=== PATIENT | male | born 1955 | race African-American/Black ===

== ENCOUNTER 2020-07-31 16:18 | Emergency (ER) | payer MEDICAID ==
[~2020-07-31] VITALS: Ht 177.8 cm; Wt 78.0 kg
[2020-07-31] MEDS ORDERED: CLONIDINE 0.2MG TABLET PO ONE (18:00)
[2020-07-31 19:17] LABS: BASOPHILS % 1.2 % (0.0-2.0); EOSINOPHILS % 6.8 % (0.0-5.0); HEMATOCRIT. 38.9 % (42.0-52.0); HEMOGLOBIN. 13.3 g/dL (14.0-18.0); LYMPHOCYTES % 26.2 % (20.0-50.0); MEAN CORPUSCULAR HEMOGLOBIN 27.5 pg (28.0-32.0); MEAN CORPUSCULAR VOLUME 80.6 fL (80.0-94.0); MEAN PLATELET VOLUME 10.1 fl (7.4-10.4); NEUTROPHILS % 57.8 % (40.0-76.0); PLATELET 270 x1000/uL (130-400); RED BLOOD CELL COUNT 4.83 mill/uL (4.7-6.1); RED CELL DISTRIBUTION WIDTH 13.7 % (11.6-14.6)
[2020-07-31 19:19] LABS: CHLORIDE 105 mEq/L (98-107)
[2020-07-31 20:03] LABS: CLARITY URINE CLEAR (CLEAR); COLOR URINE YELLOW (YELLOW); KETONES URINE NEGATIVE (NEGATIVE); LEUKOCYTE ESTERASE URINE 2+ (NEGATIVE); NITRITE URINE NEGATIVE (NEGATIVE); OCCULT BLOOD URINE 1+ (NEGATIVE); PROTEIN URINE TRACE (NEGATIVE); SPECIFIC GRAVITY URINE 1.009 (1.005-1.030); UROBILINOGEN URINE 0.2 E.U./dL (0.2-1.0)
[2020-07-31] MEDS ORDERED: CEFTRIAXONE 1 G PREMIX 50 ML IV ONE (20:45)
[2020-07-31] MEDS ORDERED: CIPR-263 MT (20:50)
[2020-07-31 21:38] VITALS: BP 118/70
== END 2020-07-31 21:49 | disposition home or self-care (01) ==
LOC: ER 16:18
DX: R60.0 Localized edema (principal); Z43.6 Encounter for attention to other artificial openings of urinary tract; N40.1 Benign prostatic hyperplasia with lower urinary tract symptoms; N39.0 Urinary tract infection, site not specified
CPT/HCPCS: 36415; 71045; 80053; 81003; 85025; 87077; 87086; 87186; 93005; 93970; 96365; 99285; J0696

== ENCOUNTER 2020-08-03 18:40 | Emergency (ER) | payer MEDICAID ==
[~2020-08-03] VITALS: Ht 177.8 cm; Wt 78.0 kg
[~2020-08-03 18:40] MED LIST: CIPR-263 MT
[2020-08-03 19:48] LABS: CLARITY URINE CLEAR (CLEAR); COLOR URINE YELLOW (YELLOW); KETONES URINE NEGATIVE (NEGATIVE); LEUKOCYTE ESTERASE URINE 1+ (NEGATIVE); NITRITE URINE NEGATIVE (NEGATIVE); OCCULT BLOOD URINE 2+ (NEGATIVE); PH URINE 6.5 (4.5-8.0); PROTEIN URINE 1+ (NEGATIVE); SPECIFIC GRAVITY URINE 1.018 (1.005-1.030)
[2020-08-03] MEDS ORDERED: TAMS-11 MT (20:47)
[2020-08-03 20:55] VITALS: BP 140/71
== END 2020-08-03 20:55 | disposition home or self-care (01) ==
LOC: ER 18:40
DX: N40.1 Benign prostatic hyperplasia with lower urinary tract symptoms (principal); R33.8 Other retention of urine
CPT/HCPCS: 81003; 99283; A4315

== ENCOUNTER 2020-10-11 04:34 | Emergency (ER) | payer MEDICAID, OTHER ==
[~2020-10-11] VITALS: Ht 177.8 cm; Wt 78.0 kg
[~2020-10-11 04:34] MED LIST changes: +TAMS-11 MT
[2020-10-11] MEDS ORDERED: ACETAMINOPHEN WITH CODEINE 300/30MG TABLET PO ONE (05:30)
[2020-10-11 06:07] LABS: CLARITY URINE TURBID (CLEAR); COLOR URINE RED (YELLOW); KETONES URINE NEGATIVE (NEGATIVE); LEUKOCYTE ESTERASE URINE 3+ (NEGATIVE); NITRITE URINE POSITIVE (NEGATIVE); OCCULT BLOOD URINE 2+ (NEGATIVE); PH URINE 5.5 (4.5-8.0); PROTEIN URINE 2+ (NEGATIVE); SPECIFIC GRAVITY URINE 1.019 (1.005-1.030)
[2020-10-11] MEDS ORDERED: LEVO750T46 PO (06:52)
[2020-10-11 07:08] VITALS: BP 158/89
== END 2020-10-11 07:13 | disposition home or self-care (01) ==
LOC: ER 04:34
DX: R33.9 Retention of urine, unspecified (principal); N39.0 Urinary tract infection, site not specified; E11.9 Type 2 diabetes mellitus without complications; Z79.899 Other long term (current) drug therapy
CPT/HCPCS: 51702; 81003; 87077; 87186; 99284; A4315

== ENCOUNTER 2020-11-24 20:57 | Emergency (ER) | payer OTHER ==
[~2020-11-24] VITALS: Ht 177.8 cm; Wt 78.0 kg
[~2020-11-24 20:57] MED LIST changes: +LEVO750T46 PO
[2020-11-25 00:01] LABS: CLARITY URINE CLEAR (CLEAR); COLOR URINE YELLOW (YELLOW); KETONES URINE NEGATIVE (NEGATIVE); LEUKOCYTE ESTERASE URINE TRACE (NEGATIVE); NITRITE URINE POSITIVE (NEGATIVE); OCCULT BLOOD URINE 1+ (NEGATIVE); PROTEIN URINE NEGATIVE (NEGATIVE); SPECIFIC GRAVITY URINE 1.011 (1.005-1.030); UROBILINOGEN URINE 0.2 E.U./dL (0.2-1.0)
[2020-11-25] MEDS ORDERED: CEPH500C2 MT (00:01)
[2020-11-25 00:38] VITALS: BP 127/84
== END 2020-11-25 00:42 | disposition home or self-care (01) ==
LOC: ER 20:57
DX: T83.038A Leakage of other urinary catheter, initial encounter (principal); N39.0 Urinary tract infection, site not specified; N40.0 Benign prostatic hyperplasia without lower urinary tract symptoms; E11.9 Type 2 diabetes mellitus without complications; Y84.6 Urinary catheterization as the cause of abnormal reaction of the patient, or of later complication, without mention of misadventure at the time of the procedure; Y92.018 Other place in single-family (private) house as the place of occurrence of the external cause
CPT/HCPCS: 81003; 99283

== ENCOUNTER 2020-12-15 08:07 | Emergency (ER) | payer OTHER ==
[~2020-12-15] VITALS: Ht 177.8 cm; Wt 78.0 kg
[~2020-12-15 08:07] MED LIST changes: +CEPH500C2 MT
[2020-12-15 08:19] VITALS: BP 189/92
[2020-12-15 10:03] LABS: BASOPHILS % 0.7 % (0.0-2.0); EOSINOPHILS % 0.7 % (0.0-5.0); HEMATOCRIT. 37.8 % (42.0-52.0); HEMOGLOBIN. 12.8 g/dL (14.0-18.0); LYMPHOCYTES % 8.5 % (20.0-50.0); MEAN CORPUSCULAR HEMOGLOBIN 27.6 pg (28.0-32.0); MEAN CORPUSCULAR VOLUME 81.3 fL (80.0-94.0); MEAN PLATELET VOLUME 9.5 fl (7.4-10.4); MONOCYTES % 5.2 % (2.0-8.0); NEUTROPHILS % 84.9 % (40.0-76.0); PLATELET 222 x1000/uL (130-400); RED BLOOD CELL COUNT 4.65 mill/uL (4.7-6.1); RED CELL DISTRIBUTION WIDTH 14.1 % (11.6-14.6)
[2020-12-15 10:13] LABS: CHLORIDE 107 mEq/L (98-107)
== END 2020-12-15 09:28 | disposition home or self-care (01) ==
LOC: ER 08:17
DX: R33.9 Retention of urine, unspecified (principal); I10 Essential (primary) hypertension; E11.9 Type 2 diabetes mellitus without complications; Z79.899 Other long term (current) drug therapy; N40.0 Benign prostatic hyperplasia without lower urinary tract symptoms
CPT/HCPCS: 36415; 51702; 80048; 85025; 99284; A4315

== ENCOUNTER 2020-12-31 20:33 | Emergency (ER) | payer OTHER ==
[~2020-12-31] VITALS: Ht 180.3 cm; Wt 77.0 kg
[2020-12-31 21:50] LABS: CHLORIDE 106 mEq/L (98-107)
[2020-12-31 23:50] VITALS: BP 144/72
== END 2020-12-31 23:52 | disposition home or self-care (01) ==
LOC: ER 20:33
DX: R33.9 Retention of urine, unspecified (principal); E11.9 Type 2 diabetes mellitus without complications
CPT/HCPCS: 36415; 51702; 80048; 99283; 99284; A4315

== ENCOUNTER 2021-04-06 19:48 | Emergency (ER) | payer OTHER ==
[~2021-04-06] VITALS: Ht 177.8 cm; Wt 79.0 kg
[2021-04-06 20:23] VITALS: BP 190/107
[2021-04-06] MEDS ORDERED: CIPR250T4 MT (21:34)
== END 2021-04-06 22:00 | disposition home or self-care (01) ==
LOC: ER 19:48
DX: T83.028A Displacement of other urinary catheter, initial encounter (principal); X58.XXXA Exposure to other specified factors, initial encounter; E11.9 Type 2 diabetes mellitus without complications
CPT/HCPCS: 99283; Z7610

== ENCOUNTER 2021-06-05 01:11 | Emergency (ER) | payer OTHER ==
[~2021-06-05] VITALS: Ht 177.8 cm; Wt 76.7 kg
[~2021-06-05 01:11] MED LIST changes: +CIPR250T4 MT
[2021-06-05 02:22] VITALS: BP 168/96
== END 2021-06-05 03:30 | disposition home or self-care (01) ==
LOC: ER 01:11
DX: N40.1 Benign prostatic hyperplasia with lower urinary tract symptoms (principal); R33.8 Other retention of urine; R03.0 Elevated blood-pressure reading, without diagnosis of hypertension; E11.9 Type 2 diabetes mellitus without complications
CPT/HCPCS: 51702; 99284; A4315

== ENCOUNTER 2021-09-11 06:48 | Emergency (ER) | payer OTHER ==
[~2021-09-11] VITALS: Ht 177.8 cm; Wt 73.0 kg
[2021-09-11 08:08] VITALS: BP 170/104
[2021-09-11 08:45] LABS: CLARITY URINE CLEAR (CLEAR); COLOR URINE YELLOW (YELLOW); KETONES URINE NEGATIVE (NEGATIVE); LEUKOCYTE ESTERASE URINE 2+ (NEGATIVE); NITRITE URINE NEGATIVE (NEGATIVE); OCCULT BLOOD URINE 2+ (NEGATIVE); PH URINE 6.5 (4.5-8.0); PROTEIN URINE NEGATIVE (NEGATIVE); UROBILINOGEN URINE 0.2 E.U./dL (0.2-1.0)
[2021-09-11] MEDS ORDERED: LEVO750T46 MT (08:51)
== END 2021-09-11 09:43 | disposition home or self-care (01) ==
LOC: ER 06:48
DX: N40.1 Benign prostatic hyperplasia with lower urinary tract symptoms (principal); R33.8 Other retention of urine; N39.0 Urinary tract infection, site not specified
CPT/HCPCS: 51702; 81003; 99284; A4315

== ENCOUNTER 2021-10-22 22:03 | Emergency (ER) | payer OTHER ==
[~2021-10-22] VITALS: Ht 177.8 cm; Wt 72.8 kg
[~2021-10-22 22:03] MED LIST changes: +LEVO750T46 MT
[2021-10-22 22:17] VITALS: BP 207/119
== END 2021-10-23 00:50 | disposition home or self-care (01) ==
LOC: ER 22:03
DX: R33.9 Retention of urine, unspecified (principal); E11.9 Type 2 diabetes mellitus without complications
CPT/HCPCS: 51702; 99284

== ENCOUNTER 2021-11-24 03:24 | Emergency (ER) | payer OTHER ==
[~2021-11-24] VITALS: Ht 177.8 cm; Wt 72.8 kg
[2021-11-24 03:38] VITALS: BP 187/102
== END 2021-11-24 05:05 | disposition home or self-care (01) ==
LOC: ER 03:24
DX: T83.098A Other mechanical complication of other urinary catheter, initial encounter (principal); N40.1 Benign prostatic hyperplasia with lower urinary tract symptoms; R33.8 Other retention of urine; R03.0 Elevated blood-pressure reading, without diagnosis of hypertension; Y73.8 Miscellaneous gastroenterology and urology devices associated with adverse incidents, not elsewhere classified; Y92.012 Bathroom of single-family (private) house as the place of occurrence of the external cause; Y84.9 Medical procedure, unspecified as the cause of abnormal reaction of the patient, or of later complication, without mention of misadventure at the time of the procedure
CPT/HCPCS: 99281

== ENCOUNTER 2021-12-09 10:08 | Emergency (ER) | payer OTHER ==
[~2021-12-09] VITALS: Ht 177.8 cm; Wt 73.0 kg
[2021-12-09 11:19] VITALS: BP 164/89
[2021-12-09 11:36] LABS: CLARITY URINE TURBID (CLEAR); COLOR URINE YELLOW (YELLOW); KETONES URINE NEGATIVE (NEGATIVE); LEUKOCYTE ESTERASE URINE 3+ (NEGATIVE); NITRITE URINE NEGATIVE (NEGATIVE); OCCULT BLOOD URINE 2+ (NEGATIVE); PH URINE 5.5 (4.5-8.0); PROTEIN URINE 1+ (NEGATIVE); UROBILINOGEN URINE 0.2 E.U./dL (0.2-1.0)
[2021-12-09] MEDS ORDERED: LIDOCAINE HCL 1% 20ML VIAL (Pyxis) INJ INFIL NR (12:00)
[2021-12-09] MEDS ORDERED: CEFTRIAXONE SODIUM 1 G/VIAL IM NR (12:00)
[2021-12-09] MEDS ORDERED: SULF1TAB48 MT (12:19)
== END 2021-12-09 12:48 | disposition home or self-care (01) ==
LOC: ER 10:08
DX: R33.9 Retention of urine, unspecified (principal); E11.9 Type 2 diabetes mellitus without complications
CPT/HCPCS: 51702; 81003; 87077; 87086; 87186; 96372; 99284; J0696

== ENCOUNTER 2021-12-17 05:28 | Emergency (ER) | payer OTHER ==
[~2021-12-17] VITALS: Ht 177.8 cm; Wt 73.0 kg
[~2021-12-17 05:28] MED LIST changes: +SULF1TAB48 MT
[2021-12-17 05:42] VITALS: BP 183/96
[2021-12-17 09:12] LABS: CHLORIDE 103 mEq/L (98-107)
[2021-12-17 10:28] LABS: CLARITY URINE CLEAR (CLEAR); COLOR URINE YELLOW (YELLOW); KETONES URINE NEGATIVE (NEGATIVE); LEUKOCYTE ESTERASE URINE NEGATIVE (NEGATIVE); NITRITE URINE NEGATIVE (NEGATIVE); OCCULT BLOOD URINE 3+ (NEGATIVE); PH URINE 5.5 (4.5-8.0); PROTEIN URINE NEGATIVE (NEGATIVE); UROBILINOGEN URINE 0.2 E.U./dL (0.2-1.0)
[2021-12-17] MEDS ORDERED: CEPH500C2 MT (11:50)
== END 2021-12-17 12:32 | disposition home or self-care (01) ==
LOC: ER 05:28
DX: T83.091A Other mechanical complication of indwelling urethral catheter, initial encounter (principal); N40.1 Benign prostatic hyperplasia with lower urinary tract symptoms; N39.0 Urinary tract infection, site not specified; R31.0 Gross hematuria; E11.65 Type 2 diabetes mellitus with hyperglycemia; E87.6 Hypokalemia; Y84.6 Urinary catheterization as the cause of abnormal reaction of the patient, or of later complication, without mention of misadventure at the time of the procedure; Y92.012 Bathroom of single-family (private) house as the place of occurrence of the external cause; Z87.440 Personal history of urinary (tract) infections; Z79.4 Long term (current) use of insulin
CPT/HCPCS: 36415; 51702; 80053; 81003; 99284; Z7610; A4315

== ENCOUNTER 2021-12-26 12:16 | Emergency (ER) | payer OTHER ==
[~2021-12-26] VITALS: Ht 177.8 cm; Wt 73.0 kg
[2021-12-26 12:41] VITALS: BP 167/100
== END 2021-12-26 17:31 | disposition home or self-care (01) ==
LOC: ER 12:16
DX: R33.9 Retention of urine, unspecified (principal); E11.9 Type 2 diabetes mellitus without complications
CPT/HCPCS: 51702; 99284; A4315